=== PATIENT | male | born 1985 | race Caucasian/White ===

== ENCOUNTER 2021-10-15 15:28 | Outpatient (CLI) | payer BC, SELFPAY ==
[2021-10-15 21:47] LABS: Albumin* 4.2 g/dL (3.3-5.0); Chloride* 106 mmol/L (96-114)
[2021-10-15 21:48] LABS: Potassium* 4.4 mmol/L (3.6-5.1); Sodium* 139 mmol/L (135-149)
[2021-10-15 21:50] LABS: Alkaline Phosphatase* 73 U/L (40-150); Aspartate Amino Transferase* 22 U/L (12-35); Bilirubin Total* 0.4 mg/dL (0.1-1.5); Blood Urea Nitrogen* 16 mg/dL (5-24); Carbon Dioxide* 25 mmol/L (20-32); Estimated Glomerular Filt Rate 99 ml/min; Total Protein* 6.6 g/dL (6.0-8.3)
[2021-10-15 21:51] LABS: Alanine Aminotransferase* 20 U/L (4-50); Calcium* 9.2 mg/dL (8.4-10.6); Glucose* 94 mg/dL (60-115)
== END 2021-10-15 15:29 | disposition home or self-care (01) ==
PROVIDERS: PCP Family Medicine; Visit Provider Dermatology
DX: Z00.00 Encounter for general adult medical examination without abnormal findings (principal); L40.9 Psoriasis, unspecified; Z11.1 Encounter for screening for respiratory tuberculosis
CPT/HCPCS: 80053; 86480

== ENCOUNTER 2025-03-13 13:15 | Outpatient (CLI) | payer BC, SELFPAY ==
[2025-03-13 16:14] LABS: Hematocrit* 48.1 % (37.0-53.0); Hemoglobin* 15.5 gm/dL (13.5-17.5); Immature Granulocytes Abs Auto 0.02 K/uL (0.00-0.30); Immature Granulocytes Pct Auto 0.2 %; Mean Corpuscular HGB Conc 32 gm/dL (32-36); Mean Corpuscular Hemoglobin 29 pg (26-34); Mean Corpuscular Volume 90 fL (80-100); RDW Coefficient of Variation % 13.2 % (11.5-15.5); Red Blood Count* 5.37 m/uL (4.30-5.90); White Blood Count* 10.97 K/uL (4.50-11.00)
[2025-03-13 16:17] LABS: Lymphocytes Absolute Auto 1.90 K/uL (0.90-2.90); Slide Review Reflex No
[2025-03-13 16:26] LABS: Chloride* 101 mmol/L (96-114)
[2025-03-13 16:27] LABS: Albumin* 4.4 g/dL (3.3-5.0); Potassium* 4.6 mmol/L (3.6-5.1); Sodium* 136 mmol/L (135-149)
[2025-03-13 16:30] LABS: Alanine Aminotransferase* 18 U/L (4-50); Alkaline Phosphatase* 65 U/L (40-150); Anion Gap 7 mEq/L (7-15); Aspartate Amino Transferase* 25 U/L (12-35); Bilirubin Total* 0.6 mg/dL (0.1-1.5); Blood Urea Nitrogen* 29 mg/dL (5-24); Calcium* 9.3 mg/dL (8.4-10.6); Carbon Dioxide* 28 mmol/L (20-32); Creatinine* 1.0 mg/dL (0.5-1.5); Estimated Glomerular Filt Rate 97 ml/min; Glucose* 97 mg/dL (60-115); Total Protein* 7.1 g/dL (6.0-8.3)
[2025-03-13 17:08] LABS: Hepatitis B Surface Antigen* Negative (Negative)
[2025-03-13 17:30] LABS: Hepatitis B Surface Antibody* Positive (Negative)
[2025-03-15 16:05] LABS: Hepatitis B Core Antibody, IgM Negative (Negative)
== END 2025-03-13 13:16 | disposition home or self-care (01) ==
LOC: NPINS 13:17
PROVIDERS: PCP Family Medicine; Visit Provider Physician Assistant
DX: Z79.899 Other long term (current) drug therapy (principal)
CPT/HCPCS: 80053; 85025; 86480; 86705; 86706; 87340